=== PATIENT | male | born 1940 | race Caucasian/White ===

== ENCOUNTER → 2016-10-13 | Outpatient (CLI) | payer MEDICARE ==
[~2016-10-13] MED LIST: BRIM0.155 EACH EYE; CENTTAB PO; DICL75TA PO; EPIP0.3I IM; LATA0.002 EACH EYE; ROSU5 PO; TIMO0.5S30 EACH EYE; VITA500T PO
[2016-10-13 10:35] LABS: AUTOMATED NEUTROPHIL # 3.3 TH/MM3 (1.8-7.7); BASOPHIL # 0.1 TH/MM3 (0-0.2); BASOPHIL % 1.2 % (0.0-2.0); EOSINOPHIL # 0.1 TH/MM3 (0-0.4); EOSINOPHIL % 1.7 % (0.0-4.0); HEMATOCRIT 44.1 % (39.0-51.0); HEMO FLAGS DIFF FINAL; LYMPH % 27.4 % (9.0-44.0); LYMPHOCYTE # 1.5 TH/MM3 (1.0-4.8); MEAN CELL VOLUME 93.4 FL (80.0-100.0); MEAN CORPUSCULAR HEMOGLOBIN 32.3 PG (27.0-34.0); MEAN CORPUSCULAR HGB CONC 34.6 % (32.0-36.0); MONO % 11.5 % (0.0-8.0); NEUT % 58.2 % (16.0-70.0); PLATELET COUNT 228 TH/MM3 (150-450); RED BLOOD COUNT 4.72 MIL/MM3 (4.50-5.90); RED CELL DISTRIBUTION WIDTH 14.4 % (11.6-17.2); WHITE BLOOD COUNT 5.6 TH/MM3 (4.0-11.0)
[2016-10-13 10:37] LABS: BLOOD, URINE NEG (NEG); GLUCOSE,URINE NEG (NEG); KETONE, URINE NEG (NEG); NITRITE,URINE NEG (NEG); PH, URINE 7.5 (5.0-8.5); URINE COLOR LIGHT-YELLOW (YELLW/STRAW)
[2016-10-13 10:38] LABS: COMMENT (UR) CULT NOT INDICATED; CULTURE IF INDICATED CULT NOT INDICATED
[2016-10-13 10:45] LABS: PROTHROMBIN TIME - PATIENT 10.5 SEC (9.8-11.6)
--- NOTE | 2016-10-13 11:04 | RADRPT ---
EXAM DATE/TIME: 10/13/2016 10:44 [facility] COMPARISON: No previous studies available for comparison. INDICATIONS : Evaluate heart and lungs for surgery clearance. MEDICAL HISTORY : None. SURGICAL HISTORY : None. ENCOUNTER: Initial ACUITY: 1 day PAIN SCORE: 0/10 LOCATION: chest FINDINGS: PA and lateral views of the chest demonstrate the lungs to be symmetrically aerated without evidence of mass, infiltrate or effusion. The cardiomediastinal contours are unremarkable. There is multilev el degenerative change throughout the spine. CONCLUSION: 1. No acute cardiopulmonary disease. Fuad Hernandez MD on October 13, 2016 at 11:03 Board Certified Radiologist. This report was verified electronically.
[2016-10-13 11:07] LABS: BICARBONATE 27.8 MEQ/L (21.0-32.0); POTASSIUM 4.9 MEQ/L (3.5-5.1)
--- NOTE | 2016-10-14 23:06 | EKG ---
Date Performed: 10/13/2016 Time Performed: 09:59:48 PTAGE: 76 years EKG: SINUS BRADYCARDIA BORDERLINE ECG NO PREVIOUS TRACING DOCTOR: Reed Tyson Interpretating Date/Time 10/14/2016 22:55:44
== END ==
LOC: CPRE 09:35
PROVIDERS: ATTEND Orthopaedic Surgery
DX: Z01.810 Encounter for preprocedural cardiovascular examination (principal); S83.241A Other tear of medial meniscus, current injury, right knee, initial encounter; R00.1 Bradycardia, unspecified; Z01.812 Encounter for preprocedural laboratory examination; Z01.818 Encounter for other preprocedural examination; X58.XXXA Exposure to other specified factors, initial encounter
CPT/HCPCS: 36415; 71020; 80048; 81001; 85025; 85610; 93005

== ENCOUNTER → 2016-10-21 | Day surgery (SDC) | payer MEDICARE ==
--- NOTE | 2016-10-14 19:54 | MH ---
cc: GT LERMA DATE OF ADMISSION: 10/21/2016 ADMITTING DIAGNOSIS: 1. A medial meniscus tear of the right knee. 2. Chondromalacia patellae, right knee. 3. Effusion, right knee. 4. Popliteal cyst, right knee. 5. Osteochondral defect medial femoral condyle, right knee. 6. Pain right knee. HISTORY OF PRESENT ILLNESS: The patient is a 76-year-old white male who has experienced pain of his right knee of at least four months duration. In June of this past year while being active at home involving washing windows and climbing up and down a ladder in a repetitive manner, the patient became symptomatic with pain involving his lower back region radiating into his right lower extremity. He later underwent epidural steroid injections for which he was able to appreciate improvement of his lower back symptoms but continued to note pain of his right lower extremity extending into the knee region. He was later seen by his primary care physician who ordered x-ray studies of the right knee, the results of which were reported as being negative. A subsequent MRI scan identified moderate chondromalacia patellae with a joint effusion and a popliteal cyst. A tear involving the body and posterior horn of the medial meniscus was also identified. An osteochondral defect of the medial femoral condyle was associated with narrowing of the joint space somewhat more pronounced medially. The patient was later seen by the undersigned physician at which time he described lingering pain about the anterior aspect of his right lower extremity extending onto the knee with associated swelling. He had been accustomed to playing golf on a regular basis but had been unable to continue with this routine because of his ongoing knee symptoms. His clinical findings were felt to be consistent with an internal derangement of his right knee for which findings and treatment options were reviewed. The pros and cons of continuing with conservative management versus operative intervention involving arthroscopic surgery were outlined in detail. Emphasis was made regarding the fact that the decision to proceed with surgery would be left entirely to the patient's discretion. He felt that his knee symptoms were of such a degree that he was ready to proceed in this direction and in compliance with his wishes he is currently being admitted in order that the above be accomplished. PAST MEDICAL HISTORY, HOSPITALIZATIONS AND SURGERIES: His past medical history, hospitalizations and surgeries have included: 1. Appendectomy. 2. Colonoscopy. The patient's medical illnesses include glaucoma. MEDICATIONS: His current medications: 1. Diclofenac 75 milligrams twice daily. 2. Crestor 5 milligrams daily. 3. Timolol ophthalmic drops 0.5% twice daily. 4. Brimonidine 0.15% daily. 5. Latanoprost 0.005% daily. 6. He also takes a vitamin C supplement. 7. Centrum Silver. ALLERGIES: The patient describes drug allergy to. 1. PENICILLIN HAS CAUSED A HIVES-LIKE REACTION. 2. BEE STINGS HAVE ALSO BEEN ASSOCIATED WITH A HIVES-LIKE REACTION. REVIEW OF SYSTEMS: He does wear glasses. Denies headache, seizure or syncope. No sinus congestion or epistaxis. Auditory acuity intact. No tinnitus. No bleeding gums or dysphagia. He denies cough, shortness of breath, upper respiratory infection, pneumonia or tuberculosis. No angina or heart disease. His appetite is good bowel movements are regular. There has been no hepatitis, gallbladder disease or ulcers. He has had hemorrhoids in the past. No urinary tract infection. No prostate disease. No history of fractures. No psychiatric illness. His remaining review of systems is unremarkable and noncontributory. FAMILY HISTORY: The patient has been for 23 years, this being his second marriage. He has one daughter by his first marriage indicated to be in good health, a stepson and a stepdaughter with a history of chronic Lyme's disease. His family history is otherwise significant for arthritis and stroke. 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 He denies active use of tobacco for almost 30 years but had been at least a 25-30 pack-year user prior to that time. Ethanol consumption socially. PHYSICAL EXAMINATION: HEIGHT: Height 5 feet 6 inches. WEIGHT: 172 pounds. GENERAL: An alert, oriented and responsive 76-year-old white male who sits quietly upon the examination table with no obvious distress. HEAD, EYES, EARS, NOSE, THROAT: Pupils are equally round and reactive to light. Extraocular movements full. Sclerae are clear. External nares clear. External of external auditory canals clear. Dental intact. Mucous membranes pink and moist. Pharynx clear. NECK: The neck is supple. Active range of motion without significant pain. Carotid pulse bilaterally. Trachea midline. Thyroid without enlargement. LUNGS: Clear to auscultation and percussion. No CVA tenderness. No discomfort throughout the dorsal or lumbar spine. HEART: Regular rhythm. No murmur or gallop. ABDOMEN: Abdomen is soft and nontender. Bowel sounds present. RECTAL: Per primary care physician. EXTREMITIES: Right knee with no significant swelling or effusion. No appreciable joint line tenderness. Apprehension and compression signs are negative. Full range of motion with slight hesitation at the extreme of flexion. No associated crepitation or instability. No collateral ligamentous laxity. Zafar test and draw signs negative. Pivot shift and Simon signs minimally positive for medial compartment pain. Straight-leg raising unremarkable at 80 degrees. Distal sensory grossly intact. Independent gait. NEUROLOGIC: Cranial nerves II-XII grossly intact. IMPRESSION: 1. Medial meniscus tear right knee. 2. Chondromalacia patellae right knee. 3. Effusion right knee. 4. Popliteal cyst right knee. 5. Osteochondral defect medial femoral condyle right knee. 6. Pain right knee PLAN: Arthroscopic surgery and possible arthrotomy right knee. The nature of the planned surgical procedure, the potential complications and risks associated, the expectations of surgery and the consent form were thoroughly reviewed with the patient in the presence of his prior to admission to the hospital. Martínez has indicated his full understanding regarding all of the above and given consent to proceed with treatment as outlined. Medical evaluation and clearance for surgery will be completed by his primary care physician Dr. Katerina Brandon. MD SHABBIR Pappas/THEODORE /5:26 PM /7:40 PM
[~2016-10-21] VITALS: Ht 167.6 cm; Wt 82.2 kg
[~2016-10-21] MED LIST changes: +ACETAMINOPHEN 1000 MG/100 ML VIAL IV ONE; +ACETAMINOPHEN/HYDROcodone 325 MG/5 MG TAB PO PRN; +DEXAMETHASONE SOD PHOS 4 MG/ML VIAL ONE; +DO NOT ADM ANY ANTICOAGULANT DRUGS XX PRN; +FAMOTIDINE 20 MG/2 ML VIAL ONE; +INSULIN HUMAN REGULAR 1,000 UNITS/10 ML VIAL SQ PRN; +KETOROLAC TROMETHAMINE 60 MG/2 ML (IM) VIAL IM ONE; +LACTATED RINGER'S 1000 ML IV SCH; +LIDOCAINE HCL 2% 20 ML VIAL OTHER ONE; +METOPROLOL TARTRATE 25 MG TAB PO PRN; +MIDAZOLAM HCL 2 MG/2 ML VIAL ONE; +MORPHINE SULFATE 8 MG/ML INJ IM PRN; +ONDANSETRON HCL 4 MG/2 ML VIAL IV PUSH ONE; +POVIDONE IODINE 7.5% SCRUB 118 ML BOTTLE TOP SCH; +PROMETHAZINE INJ 25 MG/ML VIAL IM PRN; +PROPOFOL 200 MG/20 ML AMP IV ONE; +SODIUM CHLORID 0.9% 500 ML IV SCH; +TRIAMCINOLONE ACETONIDE 40 MG/ML VIAL IA ONE; +VANCOMYCIN 1000 MG/NS 250 ML (for <70 kg) IV SCH
[2016-10-21 09:12] VITALS: BP 142/73; PULSE 67; RESP 18; TEMP 98; O2SAT 99
[2016-10-21 12:45] VITALS: BP 150/69; PULSE 64; RESP 18; TEMP 97.1; O2SAT 99
--- NOTE | 2016-10-26 19:49 | MP ---
cc: GT ARCE MD DATE OF SURGERY: 10/21/2016 PREOPERATIVE DIAGNOSIS: 1. Medial meniscus tear of the right knee. 2. Chondromalacia patella right knee. 3. Effusion right knee. 4. Popliteal cyst, right knee. 5. Osteochondral defect, medial femoral condyle right knee. 6. Pain right knee. POSTOPERATIVE DIAGNOSIS: 1. Medial meniscus tear of the right knee. 2. Chondromalacia patella right knee. 3. Effusion right knee. 4. Popliteal cyst, right knee. 5. Osteochondral defect, medial femoral condyle right knee. 6. Pain right knee. OPERATION: 1. Partial medial meniscectomy, right knee. 2. Chondroplasty of the medial femoral condyle. 3. Patella femoral joint. SURGEON: Gt Arce M.D. ANESTHESIA: General by LMA. FORMAT Following induction of satisfactory general anesthesia by LMA insertion as completed per the Department of Anesthesia, examination of the right knee revealed a satisfactory range of motion with no obvious instability. An intermittent crepitus was elicited about the joint space. The extremity proper was positioned into the certified ophthalmic surgical assistant knee braden prepped with Betadine solution and draped into a sterile field in the routine manner. Prior to initiation of the actual procedure the standard time-out protocol was completed. All parameters were appropriately addressed and confirmed by operating room personnel. Arthroscopic instrumentation was introduced through stab wound utilizing cannula with sharp and blunt trocar. The inflow irrigation by way of a medial suprapatellar portal, the arthroscope through a lateral parapatellar portal and probe through a medial parapatellar portal. Examination of the suprapatellar pouch did reveal a mild degree of reactive synovitis, a significant articular irregularity throughout the patellar side of the patellofemoral joint was appreciated, consistent with chondromalacia. Within the medial compartment an osteochondral defect of the medial femoral condyle with associated chondromalacia was identified, as was a degenerative tear involving the posterior horn of the medial meniscus. The anterior cruciate ligament was identified and noted to be intact. Within the lateral compartment there was a minimal degree of fraying along the margin of the lateral meniscus consistent with a mild degenerative process but no significant tear was otherwise appreciated. Attention was redirected to the medial compartment utilizing a biting suction forceps as well as a 4.0 aggressive resector. A partial medial meniscectomy was accomplished as well as a generalized chondroplasty of the medial femoral condyle. The shaver was thereafter oriented into the patellofemoral articulation where an additional chondroplasty of the patellofemoral joint was accomplished as well as localized debridement of reactive synovium. Upon completion of same the joint space was thoroughly lavaged and suctioned dry. An intra-articular Kenalog lidocaine injection was completed. Portal sites were reapproximated with Steri-Strips over which Xeroform gauze and a bulky dry sterile dressing placed. Anesthesia was discontinued and the patient thus transferred to a hospital stretcher and returned to the recovery room in satisfactory condition having tolerated his operative procedure well. Estimated blood loss was less than 10 cc. MD SHABBIR Pappas/ALICIA /11:33 AM /7:20 PM
== END | disposition home or self-care (01) ==
LOC: HSDC 08:30
PROVIDERS: ATTEND Orthopaedic Surgery
DX: S83.241A Other tear of medial meniscus, current injury, right knee, initial encounter (principal); M22.41 Chondromalacia patellae, right knee; M71.21 Synovial cyst of popliteal space [Baker], right knee
CPT/HCPCS: 01400; 29881; J0131; J1100; J1885; J2250; J2405; J3010; J3301; J3370; J7050; J7120

== ENCOUNTER → 2018-02-05 | Outpatient (CLI) | payer MEDICARE ==
[~2018-02-05] MED LIST changes: -ACETAMINOPHEN 1000 MG/100 ML VIAL IV ONE; -ACETAMINOPHEN/HYDROcodone 325 MG/5 MG TAB PO PRN; +ADJUSTABLE COMM1 MIS; +ASCO500T PO; +ASPI-183 PO; +CIAL5TAB PO; -DEXAMETHASONE SOD PHOS 4 MG/ML VIAL ONE; -DO NOT ADM ANY ANTICOAGULANT DRUGS XX PRN; -FAMOTIDINE 20 MG/2 ML VIAL ONE; +HYDR-3516 PO; -INSULIN HUMAN REGULAR 1,000 UNITS/10 ML VIAL SQ PRN; -KETOROLAC TROMETHAMINE 60 MG/2 ML (IM) VIAL IM ONE; -LACTATED RINGER'S 1000 ML IV SCH; -LIDOCAINE HCL 2% 20 ML VIAL OTHER ONE; -METOPROLOL TARTRATE 25 MG TAB PO PRN; -MIDAZOLAM HCL 2 MG/2 ML VIAL ONE; +MIRA3350 PO; -MORPHINE SULFATE 8 MG/ML INJ IM PRN; +MULT1TAB PO; -ONDANSETRON HCL 4 MG/2 ML VIAL IV PUSH ONE; -POVIDONE IODINE 7.5% SCRUB 118 ML BOTTLE TOP SCH; -PROMETHAZINE INJ 25 MG/ML VIAL IM PRN; -PROPOFOL 200 MG/20 ML AMP IV ONE; +SENN187 PO; -SODIUM CHLORID 0.9% 500 ML IV SCH; -TRIAMCINOLONE ACETONIDE 40 MG/ML VIAL IA ONE; -VANCOMYCIN 1000 MG/NS 250 ML (for <70 kg) IV SCH; +WALKER WHEELS/F1 MIS
[2018-02-05 11:42] LABS: BASOPHIL # 0.1 TH/MM3 (0-0.2); BASOPHIL % 0.8 % (0.0-2.0); EOSINOPHIL # 0.1 TH/MM3 (0-0.4); EOSINOPHIL % 0.8 % (0.0-4.0); HEMATOCRIT 46.9 % (39.0-51.0); HEMOGLOBIN 16.1 GM/DL (13.0-17.0); LYMPH % 16.4 % (9.0-44.0); LYMPHOCYTE # 1.4 TH/MM3 (1.0-4.8); MEAN CELL VOLUME 92.1 FL (80.0-100.0); MEAN CORPUSCULAR HEMOGLOBIN 31.6 PG (27.0-34.0); MEAN CORPUSCULAR HGB CONC 34.4 % (32.0-36.0); MEAN PLATELET VOLUME 8.2 FL (7.0-11.0); MONO % 9.7 % (0.0-8.0); MONOCYTE # 0.8 TH/MM3 (0-0.9); NEUT % 72.3 % (16.0-70.0); PLATELET COUNT 271 TH/MM3 (150-450); RED CELL DISTRIBUTION WIDTH 12.8 % (11.6-17.2); WHITE BLOOD COUNT 8.3 TH/MM3 (4.0-11.0)
[2018-02-05 11:48] LABS: PROTHROMBIN TIME - PATIENT 10.5 SEC (9.8-11.6)
[2018-02-05 11:52] LABS: BILIRUBIN, URINE NEG (NEG); BLOOD, URINE NEG (NEG); GLUCOSE,URINE NEG (NEG); KETONE, URINE NEG (NEG); MUCUS URINE FEW /lpf (OCC); NITRITE,URINE NEG (NEG); PH, URINE 6.5 (5.0-8.5); SQUAMOUS EPITHELIAL CELL URINE <1 /hpf (0-5); URINE COLOR YELLOW (YELLW/STRAW); URINE LEUKOCYTE ESTERASE NEG (NEG)
[2018-02-05 12:07] LABS: BICARBONATE 30.4 MEQ/L (21.0-32.0); CALCIUM 9.5 MG/DL (8.5-10.1); CREATININE 1.02 MG/DL (0.60-1.30)
--- NOTE | 2018-02-05 12:23 | RADRPT ---
EXAM DATE/TIME: 02/05/2018 12:00 [facility] COMPARISON: CHEST PA & LAT, October 13, 2016, 10:44. INDICATIONS : Evaluate for pneumonia,pneumothorax and communicable diseases. Pre-op hip surgery MEDICAL HISTORY : None. SURGICAL HISTORY : None. ENCOUNTER: Initial ACUITY: 1 day PAIN SCORE: 0/10 LOCATION: chest FINDINGS: PA and lateral views of the chest demonstrate the lungs to be symmetrically aerated without evidence of mass, infiltrate or effusion. The cardiomediastinal contours are unremarkable. Osseous structure s are intact. CONCLUSION: No acute disease. Messi Atkinson MD on February 05, 2018 at 12:20 Board Certified Radiologist. This report was verified electronically.
--- NOTE | 2018-02-05 18:29 | EKG ---
Date Performed: 02/05/2018 Time Performed: 11:11:49 PTAGE: 77 years EKG: Sinus rhythm NORMAL ECG Since the PREVIOUS TRACING , no significant change noted PREVIOUS TRACIN10/13/16 @ 09.59 DOCTOR: Michael Middleton Interpretating Date/Time 02/05/2018 18:28:27
== END ==
LOC: CPRE 10:47
PROVIDERS: ATTEND Orthopaedic Surgery
DX: Z01.810 Encounter for preprocedural cardiovascular examination (principal); Z01.812 Encounter for preprocedural laboratory examination; Z01.818 Encounter for other preprocedural examination; M16.11 Unilateral primary osteoarthritis, right hip
CPT/HCPCS: 36415; 71046; 80048; 81001; 85025; 85610; 93005

== ENCOUNTER 2018-02-13 05:17 | Inpatient (IN) | payer MEDICARE ==
--- NOTE | 2018-02-08 18:01 | MH ---
cc: Richard Arce MD, Norman B MD DATE OF ADMISSION: 02/13/2018 ADMITTING DIAGNOSIS: Severe osteoarthritis of the right hip. HISTORY OF PRESENT ILLNESS: The patient is a 77-year-old white male who has had at least a 6-month history of pain involving his right hip. He had initially noted the gradual onset of his symptoms unrelated to injury or unusual activity. He underwent initial evaluation with his primary care physician in the [facility] who diagnosed his symptoms as possibly being related to sciatica. The patient did undergo x-ray examination for which arthritic findings of his right hip were identified. He elected to continue with conservative management which included a series of stem cell injections, a course of physical therapy and, thereafter, the patient conforming to an exercise program. He had been accustomed to playing golf on a regular basis, but had to discontinue this routine because of the progressive nature of his pain. He had been taking both Tylenol and ibuprofen for pain management with limited benefit being noted. He was subsequently seen by the undersigned physician within the past month and at that time described ongoing pain about the right hip that was limiting all ambulatory activities. His x-ray studies revealed severe degenerative changes with complete absence of the joint space and flattening of the femoral head with subchondral cyst formation. Findings and treatment options were reviewed with the patient at that time. The pros and cons of continued conservative management versus operative intervention that would involve total hip arthroplasty were outlined in detail. Emphasis was made regarding the fact that the decision to proceed with surgery would be left entirely to the patient's discretion. The patient readily admitted that he had arrived at that point in time where he was unable to continue with any activity of daily living in a comfortable manner and, given his options, he was ready to proceed with surgery as discussed. In compliance with his wishes, he was currently scheduled for admission in order that the above be accomplished. PAST MEDICAL HISTORY, HOSPITALIZATIONS AND SURGERIES: Have included arthroscopic surgery of his right knee for a history of a medial meniscus tear. He has also undergone appendectomy and colonoscopy. The patient's medical illnesses include glaucoma. CURRENT MEDICATIONS: 1. Crestor 5 mg daily. 2. Timolol ophthalmic drops 0.5% twice daily. 3. Brimonidine 0.15% daily. 4. Latanoprost 0.005% daily. 5. Vitamin C supplement daily. 6. Centrum Silver daily. 7. Tylenol as taken on a p.r.n. basis for pain management. ALLERGIES: THE PATIENT DESCRIBES A DRUG ALLERGY TO PENICILLIN WHICH HAS CAUSED A HIVES LIKE REACTION. HE IS ALSO ALLERGIC TO BEE STINGS, WHICH HAS CAUSED A SIMILAR REACTION. REVIEW OF SYSTEMS: He does wear glasses. Denies headache, seizure, or syncope. No sinus congestion or epistaxis. Auditory acuity intact. No tinnitus. No bleeding gums or dysphagia. Denies cough, shortness of breath, upper respiratory infection, pneumonia, or tuberculosis. No angina or heart disease. Appetite good. Bowel movements are regular. No hepatitis, gallbladder disease or ulcers. There is a positive history of hemorrhoids. No urinary tract infection, no kidney stones, no prostate disease. No history of fractures. No psychiatric illness. Remaining review of systems is unremarkable and noncontributory. FAMILY HISTORY: 24 years, this being a second marriage. is 76 years of age and described as being in good health. One daughter by his first marriage is described as being in good health. A stepson and stepdaughter the latter with a history of chronic Lyme's disease. His family history is significant for arthritis and stroke. 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 He denies active use of tobacco for at least 30 years, but had been a 25-30 pack year user prior to that time. Ethanol consumption on a social basis. PHYSICAL EXAMINATION: VITAL SIGNS: Height 5 feet 6 inches, weight 183 pounds. GENERAL: An alert, oriented, and responsive 77-year-old white male sitting quietly upon the examination table with no apparent distress. HEENT: Pupils are equally round and reactive to light. Extraocular movements full. Sclerae are clear. External nares clear. External auditory canals clear. Mucous membranes pink and moist. Pharynx clear. Dental intact. NECK: Supple, active range of motion with no associated pain. Carotid pulse palpable bilaterally. Trachea midline. Thyroid without enlargement. LUNGS: Clear to auscultation and percussion. No CVA tenderness. No discomfort throughout the dorsolumbar spine. HEART: Regular rhythm, no murmur or gallop. ABDOMEN: Soft, nontender, bowel sounds present. RECTAL: Per primary care physician. EXTREMITIES: Right hip - very minimal tenderness is elicited along the anterior aspect of the right hip. There is no palpable deformity. There is guarded and restricted mobility of the hip joint, being most pronounced with internal rotation and pain at the extreme of motion, a very subtle suggestion for crepitation. No obvious instability. Straight leg raising is negative at 80 degrees. Malvin sign is positive. There is limb length discrepancy of at least 2 cm shortening on the right side. Distal sensory grossly intact. Pronounced antalgic gait. NEUROLOGIC: Cranial nerves 2-12 grossly intact. IMPRESSION: Severe osteoarthritis of the right hip. PLAN: Right total hip arthroplasty. The nature of the planned surgical procedure, the potential complications and risks associated, the expectations of surgery and the consent form were thoroughly reviewed with the patient in the presence of his prior to admission to the hospital. Martínez has indicated his full understanding regarding all of the above and given consent to proceed with treatment as outlined. Medical evaluation and clearance for surgery will be completed by his primary care physician, Dr. Katerina Brandon. MD SHABBIR Pappas/SA , 05:08 PM , 06:00 PM
[~2018-02-13] VITALS: Ht 165.1 cm; Wt 81.5 kg
[~2018-02-13 05:17] MED LIST changes: -ADJUSTABLE COMM1 MIS; -ASPI-183 PO; -CENTTAB PO; -CIAL5TAB PO; -DICL75TA PO; -HYDR-3516 PO; -MIRA3350 PO; -SENN187 PO; -VITA500T PO; -WALKER WHEELS/F1 MIS
[2018-02-13] MEDS ORDERED: METOPROLOL TARTRATE 25 MG TAB PO PRN (05:45)
[2018-02-13] MEDS ORDERED: LACTATED RINGER'S 1000 ML IV PRN (05:45)
[2018-02-13] MEDS ORDERED: SODIUM CHLORID 0.9% 500 ML IV PRN (05:45)
[2018-02-13] MEDS ORDERED: VANCOMYCIN 1 GM/200 ML INJ 200 ML IV SCH (05:45)
[2018-02-13] MEDS ORDERED: CHLORHEXIDINE GLUCONATE 2 % 1 PACK (2 CLOTHS) TOPICAL PRN (05:45)
[2018-02-13] MEDS ORDERED: POVIDONE IODINE 5% (ANTISEPSIS KIT) 4 APPLICATIONS EACH NARE PRN (05:45)
[2018-02-13] MEDS ORDERED: GENTAMICIN SULFATE 80 MG/2 ML VIAL ONE (06:18)
[2018-02-13] MEDS ORDERED: FAMOTIDINE 20 MG/2 ML VIAL ONE (06:31)
[2018-02-13] MEDS ORDERED: TRANEXAMIC ACID 1 GM PRIOR TO PROCEDURE IV SCH ×2 (07:00)
[2018-02-13] MEDS ORDERED: ACETAMINOPHEN 1000 MG/100 ML 100 ML IV ONE (07:06)
[2018-02-13] MEDS ORDERED: DO NOT ADM ANY ANTICOAGULANT DRUGS PRN (09:35)
[2018-02-13] MEDS ORDERED: MIDAZOLAM HCL 2 MG/2 ML VIAL ONE (09:40)
[2018-02-13] MEDS ORDERED: *morphine SULFATE 8 MG/ML PERIprocedure ONLY ONE ×2 (09:41→09:50)
[2018-02-13] MEDS ORDERED: NALOXONE HCL 0.4 MG/ML AMP IV PUSH PRN (09:45)
[2018-02-13] MEDS ORDERED: ACETAMINOPHEN 325 MG TAB PO PRN (09:45)
[2018-02-13] MEDS ORDERED: Post-op Orders (for Pharmacy) XX ONE (09:45)
[2018-02-13] MEDS ORDERED: PHARMACY INFORMATION XX ONE (09:45)
[2018-02-13] MEDS ORDERED: ACETAMINOPHEN/HYDROcodone 325 MG/5 MG TAB PO PRN (09:45)
[2018-02-13] MEDS ORDERED: TRANEXAMIC ACID INJ 1,000 MG in SODIUM CHLORIDE 0.9% INJ 100 ML IV SCH (09:45)
--- NOTE | 2018-02-13 09:50 | HHI.FF ---
Face to Face Verification Diagnosis: (1) Degenerative joint disease of right hip Physical Therapy Gait training Hip: Total hip, Protocol: Right, Abduction pillow while in bed Right LE Weight Bearing: WB as tolerated Right LE Range of Motion: Active ROM Nursing Dressing Changes: Daily dressing change I have seen patient Martínez Mccracken on 02/13/18. My clinical findings support the need for the requested home health care services because: Limited ability to care for self High risk of falls I certify that my clinical findings support that this patient is homebound because: Post-op weakness Unsteady gait/balance Unsafe to leave home unassisted Richard Arce MD February 13, 2018 09:50
[2018-02-13] MEDS ORDERED: TRANEXAMIC ACID 1 GM POST-OP IV SCH ×2 (10:00)
[2018-02-13] MEDS: DEXT 5%-NACL 0.45% 1000 ML INJ 1,000 ML IV SCH ×3 (10:00→20:07)
[2018-02-13] MEDS ORDERED: *LABETALOL HCL 100 MG/20 ML VIAL PERIprocedural Use ONLY ONE (10:03)
--- NOTE | 2018-02-13 10:09 | MP ---
cc: Richard Arce MD DATE OF OPERATION: 02/13/2018 PREOPERATIVE DIAGNOSIS: Severe osteoarthritis of the right hip. POSTOPERATIVE DIAGNOSIS: Severe osteoarthritis of the right hip. PROCEDURE PERFORMED: Right total hip arthroplasty. SURGEON: MD Yazmin ANESTHESIA: General endotracheal. INDICATIONS: This is a 77-year-old white male with a 6-month history of right hip pain of gradual onset unrelated to injury or unusual activity. He had undergone initial evaluation with his primary care physician in the [facility] who diagnosed his symptoms as possibly related to sciatica. The patient did undergo x-ray examination for which arthritic findings of the right hip were identified. He elected to continue with conservative management which included a series of stem cell injections, a course of physical therapy and the patient thereafter conforming to an exercise program. He has been accustomed to playing golf on a regular basis, but had to discontinue this routine because of progressive pain involving his right hip. He has been taking both Tylenol and ibuprofen for pain management with limited benefit noted. He was later seen by the undersigned physician and at that time described ongoing pain about his right hip that was limiting all ambulatory activities. His x-ray studies revealed severe degenerative changes with complete absence of the joint space and flattening of the femoral head with subchondral cyst formation. Findings and treatment options were reviewed. The pros and cons of continuing with conservative management versus operative intervention that would involve a total hip arthroplasty were outlined. Emphasis was made regarding the fact that the decision to proceed with surgery would be left entirely to the patient's discretion. The patient readily admitted that he was at that point in time where he was unable to continue with any activities of daily living in a comfortable manner and, noting his options as outlined above, he was ready to proceed with surgery as discussed. In compliance with his wishes, he was scheduled for admission at this time in order that the above be accomplished. FORMAT: Following the induction of satisfactory general anesthesia by endotracheal intubation as completed per the Department of Anesthesia, the patient was positioned upon the operating table in a left lateral decubitus fashion. The right hip and lower extremity proper were isolated with a U-drape, thereafter being prepped with Betadine solution and draped into a sterile field in the routine manner. Prior to initiation of the actual procedure, the standard timeout protocol was completed. All parameters were appropriately addressed and confirmed by operating room personnel. A standard posterolateral approach to the hip was initiated through a sharp skin incision and developed through underlying subcutaneous tissue with hemostasis maintained by electrocautery. By deepening dissection, the underlying gluteus musculature was exposed and thereafter divided with the Bovie on cutting current. Progressive dissection facilitated exposure of the short external rotator structures. The piriformis tendon was utilized as an anatomical landmark and division of these structures was completed in a superior to inferior orientation and reflected medially, exposing the posterior capsule. The sciatic nerve was protected. An L-shaped capsulotomy was accomplished through which a posterior dislocation of the femoral head was completed. Examination revealed severe degenerative changes with complete erosion of articular cartilage and significant deformation of the femoral head. The femoral template was positioned for alignment orientation. The neck was scored and thereafter divided with power saw, the amputated segment being passed to the back table as surgical specimen. Attention was initially directed to the proximal femur. Cancellous bone was harvested. The tapered reamer was inserted for alignment orientation. Sequential rasping and broaching was accomplished from 7 through 10 mm with the calcar vy being utilized at the 10 mm stage. The 10 mm stem was determined to be a favorable fit. The trial component being removed, attention was redirected to the acetabulum. The labrum reactive soft tissue was sharply excised. Progressive reaming was accomplished in 1 mm increments from 46 through 53 mm. The 54 trial shell was positioned and determined to be satisfactory. With all trial components being removed, the wound was copiously irrigated with pulsating antibiotic solution, hemostasis maintained by electrocautery. Harvested cancellous bone was digitally impacted into the depths of the acetabulum and thereafter a 50 mm Continuum acetabular shell was firmly seated in approximately 45 degrees inclination to the horizontal and slight anteversion. A single 25 mm, 6.5 cancellous screw was inserted superiorly to augment fixation. The permanent high wall acetabular liner was affixed to the acetabular shell. The trial femoral 10 mm broach was repositioned and a trial reduction followed utilizing a 36 mm modular head with -6 mm neck length adaptor. The hip readily reduced, was then carried through a passive range of motion, stability demonstrated at 90 degrees flexion and 45 degrees internal rotation. An open dislocation was completed, trial femoral components being removed. The canal was thoroughly irrigated and dried and thereafter a size 10 Echo Bi-Metric standard femoral stem was firmly seated to which a 36 mm ceramic head with -6 mm neck length adapter attached. Open reduction completed and repeat range of motion again noted stability as previously described. Final irrigation was accomplished with hemostasis maintained. The posterior capsule was repaired with 0 Vicryl suture. Piriformis tendon and short external rotator structures were reapproximated in a similar manner. Hemovac drain tubes were inserted through superior stab wounds. The fascia of the gluteus musculature was reapproximated with a running 0 Vicryl suture. The remaining portion of the wound was closed in layers in the routine manner, skin margins being reapproximated with a running subcuticular 3-0 Vicryl suture over which Steri-Strips were applied. Xeroform gauze and a bulky dry sterile dressing placed. The patient repositioned into a supine orientation where an abduction splint was attached. Anesthesia was discontinued and the patient thereafter transferred to a hospital bed and returned to the recovery room in satisfactory condition, having tolerated his operative procedure well. Estimated blood loss was approximately 400 mL as determined per Anesthesia. Acetabular implants were of the Kurt tobacco prizer and the femoral implants of the Biomet tobacco prizer. MD SHABBIR Pappas/SB , 09:41 AM , 10:08 AM
[2018-02-13] MEDS ORDERED: ONDANSETRON ODT 4 MG TAB PO PRN (10:15)
[2018-02-13] MEDS: MORPHINE SULFATE 30 MG/30 ML PCA IV SCH (10:24)
--- NOTE | 2018-02-13 10:58 | RADRPT ---
EXAM DATE: 02/13/2018 10:37 AM EDT AGE/SEX: 77 years / Male INDICATIONS: Post-op right hip replacement. CLINICAL DATA: This is the patient's initial encounter. Patient reports that signs and symptoms have been present for 1 day and indicates a pain score of 6/10. MEDICAL/SURGICAL HISTORY: None. None. COMPARISON: No prior [facility] exams available for comparison. TECHNIQUE: Single view FINDINGS: Bony structures are intact and in normal alignment. Postsurgical changes following right hip replacement are noted. Femoral and acetabular components are well seated in satisfactory alignmen t. Osseous density is normal. Soft tissues are unremarkable. CONCLUSION: Satisfactory postoperative appearance following right hip replacement. Electronically signed by: Rangel Banks MD 02/13/2018 10:57 AM EDT
[2018-02-13 12:00] VITALS: BP 166/78; PULSE 71; RESP 19; TEMP 97.4; O2SAT 100
[2018-02-13] MEDS: PCA - TOTAL MG MORPHINE DELIVERED PER SHIFT SCH ×2 (14:00→20:07)
[2018-02-13] MEDS ORDERED: ENALAPRILAT 1.25 MG/ML VIAL IV PUSH PRN (14:45)
--- NOTE | 2018-02-13 14:46 | PD.CONS ---
[facility] Consult Requested By Dr. arce Reason for Consult Opinions and recommendations on treatment of patient's elevated blood pressure Primary Care Physician Jesica Brandon M.D. Diagnoses: History of Present Illness 77-year-old white male with a previous history of osteoarthritis, hyperlipidemia who has had long-term history of right hip pain despite conservative treatment. He electively underwent a right total knee arthroplasty with Dr. Arce today. Postoperatively, patient reports his pain is controlled. He has no other complaints. He denies a history of constipation. He denies a history of blood in stools or black tarry stools. He reports no significant history of elevated blood pressure however does report "white coat syndrome." He is currently not taking any medication for blood pressure. Review of Systems Constitutional: DENIES: Fatigue, Fever, Chills, Change in appetite Endocrine: DENIES: Heat/cold intolerance Eyes: DENIES: Blurred vision, Eye pain, Vision loss Ears, nose, mouth, throat: DENIES: Hearing loss, Nasal discharge, Throat pain, Ear Pain, Sinus Pain Respiratory: DENIES: Cough, Shortness of breath Cardiovascular: DENIES: Chest pain, Palpitations, Dyspnea on Exertion, Lower Extremity Edema Gastrointestinal: DENIES: Abdominal pain, Black stools, Bloody stools, Constipation, Diarrhea, Nausea, Vomiting Musculoskeletal: COMPLAINS OF: Joint pain (Right hip pain as described in HPI) , DENIES: Muscle aches, Stiffness Integumentary: DENIES: Rash Hematologic/lymphatic: DENIES: Bruising, Lymphadenopathy Immunologic/allergic: DENIES: Eczema Neurologic: DENIES: Headache, Localized weakness, Paresthesias Psychiatric: DENIES: Anxiety, Depression, Suicidal Ideation Past Family Social History Allergies: Coded Allergies: bee venom protein (honey bee) (Unverified Allergy, Severe, Anaphylaxis, ) carries epi pen penicillin G (Unverified Allergy, Severe, Hotflash, 02/13/18) Past Medical History Arthritis Hyperlipidemia Glaucoma Cataracts Past Surgical History Appendectomy Right knee arthroscopic surgery Reported Medications Vitamin C 500 mm p.o. daily Brimondine tartrate1 drop each eye daily EpiPen 0.3 mg IM as needed for any anaphylaxis Latanoprost ophthalmic drops 1 drop each eye nightly Multivitamin 1 p.o. daily Crestor 5 mg p.o. daily Timolol ophthalmic drops 0.5% solution 1 drop each eye twice daily Family History Father had rheumatoid arthritis Social History Does not smoke cigarettes occasional use of alcohol Physical Exam Vital Signs Vital Signs Date Time Temp Pulse Resp B/P (MAP) Pulse Ox O2 Delivery O2 Flow Rate FiO2 02/13/18 12:00 97.4 71 19 166/78 (107) 100 02/13/18 10:30 65 12 153/67 (95) 99 Nasal Cannula 2 02/13/18 10:24 16 02/13/18 10:00 67 17 163/80 (107) 99 Nasal Cannula 2 02/13/18 09:45 74 12 149/67 (94) 97 Nasal Cannula 2 02/13/18 09:35 97.5 76 19 178/85 (116) 97 Nasal Cannula 2 02/13/18 05:45 98.7 64 20 167/97 (120) 99 Physical Exam GENERAL: This is a well-nourished, well-developed patient, in no apparent distress. SKIN: No rashes, ecchymoses or lesions. Cool and dry. HEAD: Atraumatic. Normocephalic. No temporal or scalp tenderness. EYES: Pupils equal round and reactive. Extraocular motions intact. . ENT: Nose without bleeding, purulent drainage or septal hematoma. NECK: Trachea midline. No JVD or lymphadenopathy. Supple, nontender, no meningeal signs. CARDIOVASCULAR: Regular rate and rhythm RESPIRATORY: Clear to auscultation. Breath sounds equal bilaterally. No wheezes , rales, or rhonchi. GASTROINTESTINAL: Abdomen soft, non-tender, nondistended. No hepato-splenomegaly , or palpable masses. No guarding. MUSCULOSKELETAL: Extremities without clubbing, cyanosis, or edema. Bilateral SCDs, right hip dressing and drain in place NEUROLOGICAL: Awake and alert to person place time and situation. Cranial nerves II through XII intact. Motor and sensory grossly within normal limits. Normal speech. Imaging Last Impressions Hip X-Ray 02/13/18 0975 Signed Impressions: CONCLUSION: Satisfactory postoperative appearance following right hip replaceme nt. Assessment and Plan Assessment and Plan 1. Status post right hip arthroplasty- continue postoperative care, pain control, physical therapy per orthopedic surgery, Dr. arce. 2. History of hyperlipidemia - continue with Crestor statin 3. Elevated blood pressure may be due to pain IV Vasotec as needed for any uncontrolled blood pressure, will continue monitor blood pressure trends and further recommendations based on trends. 4. DVT prophylaxis risks and benefits of anticoagulation discussed with patient today. Initiate Xarelto per orthopedic surgery. Thank you for this consultation Columba Garcia MD February 13, 2018 14:46
[2018-02-13 15:59] VITALS: BP 151/86; PULSE 83; RESP 18; TEMP 97.5; O2SAT 98
[2018-02-13 20:00] VITALS: BP 144/55; PULSE 79; RESP 20; TEMP 98.2; O2SAT 98
[2018-02-13] MEDS: VANCOMYCIN INJ 1,000 MG in SODIUM CHLOR 0.9% 250 ML INJ 250 ML IV SCH (20:08)
[2018-02-14] VITALS: BP 134/69; PULSE 83; RESP 20; TEMP 97.9; O2SAT 97
[2018-02-14] MEDS: MORPHINE SULFATE 30 MG/30 ML PCA IV SCH (01:32)
[2018-02-14 04:00] VITALS: BP 154/75; PULSE 88; RESP 18; TEMP 98.6; O2SAT 98
[2018-02-14 04:29] LABS: HEMATOCRIT 38.9 % (39.0-51.0); HEMOGLOBIN 13.5 GM/DL (13.0-17.0)
[2018-02-14] MEDS: PCA - TOTAL MG MORPHINE DELIVERED PER SHIFT SCH ×3 (04:33→22:00)
[2018-02-14] MEDS ORDERED: HYDR-3516 PO (06:24)
[2018-02-14] MEDS ORDERED: ASPI-183 PO (06:24)
[2018-02-14] MEDS ORDERED: ADJUSTABLE COMM1 MIS (06:28)
[2018-02-14] MEDS ORDERED: WALKER WHEELS/F1 MIS (06:28)
[2018-02-14 08:00] VITALS: BP 167/72; PULSE 92; RESP 18; TEMP 98.2; O2SAT 99
[2018-02-14] MEDS: MAGNESIUM HYDROXIDE SUSP 30 ML CUP PO SCH ×2 (08:01→20:32)
[2018-02-14] MEDS: VANCOMYCIN INJ 1,000 MG in SODIUM CHLOR 0.9% 250 ML INJ 250 ML IV SCH (08:03)
[2018-02-14] MEDS: RIVAROXABAN 10 MG TAB PO SCH (09:02)
[2018-02-14] MEDS ORDERED: CIAL5TAB PO (09:39)
[2018-02-14] MEDS: DEXT 5%-NACL 0.45% 1000 ML INJ 1,000 ML IV SCH ×2 (10:00→18:00)
[2018-02-14 11:53] VITALS: BP 162/72; PULSE 106; RESP 19; TEMP 97.9; O2SAT 96
[2018-02-14] MEDS: ACETAMINOPHEN/HYDROcodone 325 MG/5 MG TAB PO PRN ×3 (12:12→21:51)
--- NOTE | 2018-02-14 12:13 | HHI.PR ---
Subjective Remarks Follow-up for right AB, hyperlipidemia. Patient reports his pain is fairly well controlled. He complains of frequent urination and only urinating small amounts. Denies any dysuria or suprapubic pain. Denies any fevers or chills. He also reports passing flatus, requesting Gas-X. His last bowel movement was 2 days ago on Wednesday 02/14. He denies any other medical complaints at this time including no lightheadedness/dizziness, chest pain, shortness of breath, nausea/ vomiting, or abdominal pain. Again discussed his elevated blood pressures, most recently 167/72. 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 Objective Vitals Vital Signs Date Time Temp Pulse Resp B/P (MAP) Pulse Ox O2 Delivery O2 Flow Rate FiO2 02/14/18 11:53 97.9 106 19 162/72 (102) 96 02/14/18 08:00 98.2 92 18 167/72 (103) 99 02/14/18 04:33 16 02/14/18 04:00 98.6 88 18 154/75 (101) 98 02/14/18 01:32 18 02/14/18 00:00 97.9 83 20 134/69 (90) 97 02/13/18 20:07 16 02/13/18 20:00 98.2 79 20 144/55 (84) 98 02/13/18 15:59 97.5 83 18 151/86 (107) 98 02/13/18 14:00 16 I/O 02/13/18 02/13/18 02/13/18 02/14/18 02/14/18 02/14/18 07:00 15:00 23:00 07:00 15:00 23:00 Intake Total 1500 ml 1600 ml 500 ml Output Total 440 ml 455 ml 690 ml Balance 1060 ml 1145 ml -190 ml Intake Oral 600 ml 500 ml IV Total 1000 ml Other 1500 ml Output Urine Total 275 ml 600 ml Drainage Total 40 ml 180 ml 90 ml Estimated Blood Loss 400 ml # Bowel Movements 0 Result Diagram: 02/14/18 7949 Imaging Last Impressions Hip X-Ray 02/13/18 0938 Signed Impressions: CONCLUSION: Satisfactory postoperative appearance following right hip replaceme nt. Objective Remarks GENERAL: Well-nourished, well-developed pleasant elderly male patient in [facility]. SKIN: Warm and dry. No rash. HEENT: Normocephalic. Atraumatic. Pupils equal and round. Mucous membranes pink and moist. CARDIOVASCULAR: Regular rate and rhythm. No murmur appreciated. RESPIRATORY: No accessory muscle use. Clear to auscultation. Breath sounds equal bilaterally. GASTROINTESTINAL: Abdomen soft, non-tender, nondistended. Normoactive bowel sounds x4. MUSCULOSKELETAL: No obvious deformities. Extremities without clubbing, cyanosis , or edema. Right hip surgical dressing in place with drain. Distal RLE sensation intact with 2+ pedal pulses and brisk capillary refill. NEUROLOGICAL: Awake and alert. No obvious cranial nerve deficits. Motor grossly within normal limits. Moving all extremities spontaneously. Normal speech. PSYCHIATRIC: Appropriate mood and affect; insight and judgment normal. Procedures 02/13/18 -right total hip arthroplasty by Dr. Arce Medications and IVs Current Medications Medications (Trade) Dose Ordered Sig/Constance Route Start Time Stop Time Status Last Admin Lactated Ringer's 1,000 ml @ 30 mls/hr Q24H PRN IV 02/13/18 05:45 02/16/18 05:44 02/13/18 05:45 Sodium Chloride 500 ml @ 30 mls/hr [id number] PRN IV 02/13/18 05:45 02/16/18 05:44 (Lopressor) 25 mg PERPETUAL INVENTORY CLERK PRN PO 02/13/18 05:45 02/16/18 05:44 (Betadine 5% Antisepsis Kit) 1 applic PERPETUAL INVENTORY CLERK PRN EACH NARE 02/13/18 05:45 02/16/18 05:44 02/13/18 06:00 (Chlorhexidine 2% Cloth) 3 pack PERPETUAL INVENTORY CLERK PRN TOPICAL 02/13/18 05:45 02/16/18 05:44 02/13/18 05:30 Dextrose/Sodium Chloride 1,000 ml @ 125 mls/hr Q8H IV 02/13/18 10:00 02/13/18 20:07 (Xarelto) 10 mg Q24H PO 02/14/18 08:30 02/14/18 09:02 ([place] 5-325 Mg) 1 tab Q4H PRN PO 02/13/18 09:45 02/14/18 12:12 ([place] 5-325 Mg) 2 tab Q4H PRN PO 02/13/18 09:45 (Tylenol) 650 mg Q6H PRN PO 02/13/18 09:45 (Zofran Odt) 4 mg Q6H PRN PO 02/13/18 10:15 (Colace) 100 mg BID PRN PO 02/13/18 09:45 (Ambien) 5 mg HS PRN PO 02/13/18 09:45 (Narcan Inj) 0.4 mg UNSCH PRN IV PUSH 02/13/18 09:45 (Morphine 1 Mg/ ml DIRECTOR ORANGE) 30 mg UNSCH IV 02/13/18 10:00 02/15/18 09:59 02/14/18 01:32 DIRECTOR ORANGE Dosage Infused (Pha) 1 Q8HR .XX 02/13/18 14:00 02/15/18 09:59 02/14/18 04:33 (Vasotec Inj) 1.25 mg Q6H PRN IV PUSH 02/13/18 14:45 (Milk Of Magnesia Liq) 30ML UNTIL BM Q12HR PO 02/14/18 09:00 02/14/18 08:01 Patient Own Medication PT OWN MED: (Tadala... EVERY OTHER DAY PO 02/16/18 09:00 Future Hold (Mylicon Chew) 80 mg PCHS PRN CHEW 02/14/18 13:45 Urinary Catheter: No A/P Assessment and Plan 77-year-old white male with a previous history of osteoarthritis, hyperlipidemia admitted to [place] for right total hip arthroplasty by Dr. Arce. Hospitalists consulted for medical management. Osteoarthritis s/p Right Total Hip Arthroplasty: surgery done 02/[address] Arce -Continue management per ortho -Continue pain control with [place] prn -DVT prophylaxis with Xarelto per ortho -Continue physical therapy -Plan for patient to d/c with [facility] Hyperlipidemia: chronic -continue patient's statin Elevated blood pressure: may be due to pain, although patient claims whitecoat hypertension and that his BP is always well controlled without meds -Give IV Vasotec as needed for any uncontrolled blood pressure -continue to monitor blood pressure trends and further recommendations based on trends. -outpatient BP log and f/up with PCP Urinary Frequency/Hesitancy: patient reports frequent small amounts of urination. -check UA to rule out infection DVT prophylaxis: on Xarelto per orthopedic surgery. Discharge Planning Plan to discharge with [facility] per ortho. Rubi Mckinnon PA-C February 14, 2018 12:13 pm
[2018-02-14] MEDS ORDERED: SIMETHICONE 80 MG CHEWABLE TAB CHEW ONE (13:45)
[2018-02-14 16:30] VITALS: BP 156/72; PULSE 97; RESP 18; TEMP 98.2; O2SAT 96
[2018-02-14 18:19] LABS: BILIRUBIN, URINE NEG (NEG); BLOOD, URINE SMALL (NEG); GLUCOSE,URINE 300 mg/dL (NEG); KETONE, URINE TRACE mg/dL (NEG); NITRITE,URINE NEG (NEG); SPERM, URINE OCC; URINE COLOR YELLOW (YELLW/STRAW); URINE LEUKOCYTE ESTERASE NEG (NEG)
[2018-02-14 20:00] VITALS: BP 150/64; PULSE 101; RESP 20; TEMP 98; O2SAT 97
[2018-02-14] MEDS: DOCUSATE SODIUM 100 MG CAP PO PRN (20:32)
[2018-02-15] VITALS (7 sets, daily range): BP systolic 114–152; BP diastolic 61–79; PULSE 95–110; RESP 16–20; TEMP 97.3–98.8; O2SAT 95–97
[2018-02-15] MEDS: ZOLPIDEM TARTRATE 5 MG TAB PO PRN ×2 (00:10→22:18)
[2018-02-15] MEDS: DEXT 5%-NACL 0.45% 1000 ML INJ 1,000 ML IV SCH ×3 (02:00→17:32)
[2018-02-15] MEDS: SIMETHICONE 80 MG CHEWABLE TAB CHEW PRN ×2 (04:56→11:41)
[2018-02-15] MEDS: PCA - TOTAL MG MORPHINE DELIVERED PER SHIFT SCH (05:43)
[2018-02-15] MEDS ORDERED: BISACODYL 10 MG SUPP RECTAL ONE (06:30)
[2018-02-15] MEDS ORDERED: cloNIDine HCL 0.1 MG TAB PO PRN (07:15)
[2018-02-15] MEDS: RIVAROXABAN 10 MG TAB PO SCH (08:06)
[2018-02-15] MEDS: MAGNESIUM HYDROXIDE SUSP 30 ML CUP PO SCH ×2 (08:06→21:00)
[2018-02-15] MEDS ORDERED: SOD PHOSPHATE/SOD BIPHOSPHATE (ADULT) ENEMA 133ML RECTAL PRN (11:30)
--- NOTE | 2018-02-15 12:14 | HHI.PR ---
Subjective Remarks Follow-up for right AB, hyperlipidemia. Patient reports his pain is fairly well controlled. He complains of frequent urination and only urinating small amounts. Denies any dysuria or suprapubic pain. Denies any fevers or chills. He also reports passing flatus, requesting Gas-X. His last bowel movement was 2 days ago on Wednesday 02/14. He denies any other medical complaints at this time including no lightheadedness/dizziness, chest pain, shortness of breath, nausea/ vomiting, or abdominal pain. Again discussed his elevated blood pressures, most recently 167/72. 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 02-15 is having difficulty urinating because he is not taking his Cialis like he normally takes it at home for his BPH Patient is having constipation which also may in part affect his difficulty urinating Patient will be given medications for bowel movements Hopefully can be discharged later today to home Discussed with RN and patient Had to be straight cath for 1100 mL's earlier today Also having issues with constipation Objective Vitals Vital Signs Date Time Temp Pulse Resp B/P (MAP) Pulse Ox O2 Delivery O2 Flow Rate FiO2 02/15/18 08:00 97.6 110 17 130/61 (84) 96 02/15/18 05:43 18 02/15/18 04:00 97.9 96 20 152/79 (103) 97 02/15/18 00:00 98.8 95 20 148/67 (94) 95 02/14/18 22:00 18 02/14/18 20:00 98.0 101 20 150/64 (92) 97 02/14/18 16:30 98.2 97 18 156/72 (100) 96 02/14/18 14:00 16 I/O 02/14/18 02/14/18 02/14/18 02/15/18 02/15/18 02/15/18 06:59 14:59 22:59 06:59 14:59 22:59 Intake Total 500 ml 490 ml 1200 ml 720 ml Output Total 690 ml 25 ml 1100 ml Balance -190 ml 465 ml 1200 ml -380 ml Intake Oral 500 ml 1200 ml 720 ml IV Total 490 ml Output Urine Total 600 ml 1100 ml Drainage Total 90 ml 25 ml # Voids 5 # Bowel Movements 0 Result Diagram: 02/14/18 0345 Other Results Laboratory Tests Test 02/14/18 03:45 02/14/18 17:52 Hemoglobin 13.5 GM/DL Hematocrit 38.9 % Urine Color YELLOW Urine Turbidity CLEAR Urine pH 6.0 Urine Specific [place] 1.014 Urine Protein TRACE mg/dL Urine Glucose (UA) 300 mg/dL Urine Ketones TRACE mg/dL Urine Occult Blood SMALL Urine Nitrite NEG Urine Bilirubin NEG Urine Urobilinogen LESS THAN 2.0 MG/DL Urine Leukocyte Esterase NEG Urine RBC 10 /hpf Urine WBC 1 /hpf Urine Sperm OCC Microscopic Urinalysis Comment CULT NOT INDICATED Imaging Last Impressions Hip X-Ray 02/13/18 0985 Signed Impressions: CONCLUSION: Satisfactory postoperative appearance following right hip replaceme nt. Objective Remarks GENERAL: Well-nourished, well-developed pleasant elderly male patient in NAD. SKIN: Warm and dry. No rash. HEENT: Normocephalic. Atraumatic. Pupils equal and round. Mucous membranes pink and moist. CARDIOVASCULAR: Regular rate and rhythm. No murmur appreciated. RESPIRATORY: No accessory muscle use. Clear to auscultation. Breath sounds equal bilaterally. GASTROINTESTINAL: Abdomen soft, non-tender, nondistended. Normoactive bowel sounds x4. MUSCULOSKELETAL: No obvious deformities. Extremities without clubbing, cyanosis , or edema. Right hip surgical dressing in place with drain. Distal RLE sensation intact with 2+ pedal pulses and brisk capillary refill. NEUROLOGICAL: Awake and alert. No obvious cranial nerve deficits. Motor grossly within normal limits. Moving all extremities spontaneously. Normal speech. PSYCHIATRIC: Appropriate mood and affect; insight and judgment normal. Insight and judgment is good Mood and behavior is appropriate Awake alert and oriented 3 talkative and cooperative Procedures 02/13/18 -right total hip arthroplasty by Dr. Arce Medications and IVs Current Medications Lactated Ringer's 1,000 ml @ 30 mls/hr Q24H PRN IV SEE LABEL COMMENTS Last administered on 02/13/18at 05:45; Start 02/13/18 at 05:45; Stop 02/16/18 at 05:44 Sodium Chloride 500 ml @ 30 mls/hr [id number] PRN IV SEE LABEL COMMENTS; Start at 05:45; Stop 02/16/18 at 05:44 Metoprolol Tartrate (Lopressor) 25 mg AS400 CONSULTANT PRN PO SEE LABEL COMMENTS; Start 02/13/18 at 05:45; Stop 02/16/18 at 05:44 Povidone Iodine (Betadine 5% Antisepsis Kit) 1 applic AS400 CONSULTANT PRN EACH NARE SEE LABEL COMMENTS Last administered on 02/13/18at 06:00; Start 02/13/18 at 05:45 ; Stop 02/16/18 at 05:44 Chlorhexidine Gluconate (Chlorhexidine 2% Cloth) 3 pack AS400 CONSULTANT PRN TOPICAL SEE LABEL COMMENTS Last administered on 02/13/18at 05:30; Start 02/13/18 at 05:45 ; Stop 02/16/18 at 05:44 Vancomycin/Sodium Chloride 200 ml @ 250 mls/hr AS400 CONSULTANT IV Last administered on 02/13/18at 06:44; Start 02/13/18 at 05:45; Stop 02/14/18 at 05:44; Status DC Tranexamic Acid 1000 mg/Sodium Chloride 110 ml @ 220 mls/hr ONCE IV Last administered on 02/13/18at 07:01; Start 02/13/18 at 07:00; Stop 02/13/18 at 13:03 ; Status DC Tranexamic Acid 1000 mg/Sodium Chloride 110 ml @ 220 mls/hr ONCE IV Last administered on 02/13/18at 10:25; Start 02/13/18 at 10:00; Stop 02/13/18 at 16:00 ; Status DC Gentamicin Sulfate (Gentamicin Inj) 240 mg STK-MED ONCE .ROUTE Last administered on 02/13/18at 07:33; Start 02/13/18 at 06:18; Stop 02/13/18 at 06:19 ; Status DC Famotidine (Pepcid Inj) 20 mg STK-MED ONCE .ROUTE ; Start 02/13/18 at 06:31; Stop 02/13/18 at 06:32; Status DC Acetaminophen 100 ml @ As Directed STK-MED ONCE IV ; Start 02/13/18 at 07:06; Stop 02/13/18 at 07:07; Status DC Midazolam HCl (Versed Inj) 2 mg STK-MED ONCE .ROUTE ; Start 02/13/18 at 09:40; Stop 02/13/18 at 09:41; Status DC Fentanyl Citrate (fentaNYL INJ) 500 mcg STK-MED ONCE .ROUTE ; Start 02/13/18 at 09:40; Stop 02/13/18 at 09:41; Status DC Morphine Sulfate (*morphine INJ PERIprocedure ONLY) 8 mg STK-MED ONCE .ROUTE Last administered on 02/13/18at 09:41; Start 02/13/18 at 09:41; Stop 02/13/18 at 09:42; Status DC Dextrose/Sodium Chloride 1,000 ml @ 125 mls/hr Q8H IV Last administered on at 20:07; Start 02/13/18 at 10:00 Vancomycin HCl 1000 mg/Sodium Chloride 250 ml @ 250 mls/hr Q12H IV Last administered on 02/14/18at 08:03; Start 02/13/18 at 20:00; Stop 02/14/18 at 08:59 ; Status DC Miscellaneous Information ([facility] Post-op Orders (for Pharmacy)) STAT ONCE XX ; Start 02/13/18 at 09:45; Stop 02/13/18 at 10:10; Status DC Rivaroxaban (Xarelto) 10 mg Q24H PO Last administered on 02/15/18at 08:06; Start 02/14/18 at 08:30 Miscellaneous Medication ([facility] Pharmacy Information) ONCE ONCE XX ; Start at 09:45; Stop 02/13/18 at 10:12; Status DC Acetaminophen/ Hydrocodone Bitart (Adams 5-325 Mg) 1 tab Q4H PRN PO PAIN LESS THAN 5 ON SCALE Last administered on 02/14/18at 21:51; Start 02/13/18 at 09:45 Acetaminophen/ Hydrocodone Bitart (Adams 5-325 Mg) 2 tab Q4H PRN PO PAIN SCALE 5 TO 10; Start 02/13/18 at 09:45 Acetaminophen (Tylenol) 650 mg Q6H PRN PO FEVER > 101; Start 02/13/18 at 09:45 Tranexamic Acid 1000 mg/Sodium Chloride 110 ml @ 200 mls/hr UNSCH IV ; Start at 09:45; Stop 02/13/18 at 10:07; Status DC Ondansetron HCl (Zofran Odt) 4 mg Q6H PRN PO NAUSEA OR VOMITING Last administered on 02/14/18at 19:10; Start 02/13/18 at 10:15 Docusate Sodium (Colace) 100 mg BID PRN PO CONSTIPATION Last administered on at 20:32; Start 02/13/18 at 09:45 Zolpidem Tartrate (Ambien) 5 mg HS PRN PO SLEEP Last administered on 02/15/18at 00:10; Start 02/13/18 at 09:45 Naloxone HCl (Narcan Inj) 0.4 mg UNSCH PRN IV PUSH RESPIRATORY RATE LESS THAN 10; Start 02/13/18 at 09:45 Morphine Sulfate (Morphine 1 Mg/ ml ANTIQUE FURNITURE RESTORER) 30 mg UNSCH IV Last administered on at 01:32; Start 02/13/18 at 10:00; Stop 02/15/18 at 09:59; Status DC ANTIQUE FURNITURE RESTORER Dosage Infused (Pha) 1 Q8HR .XX Last administered on 02/15/18at 05:43; Start 02/13/18 at 14:00; Stop 02/15/18 at 09:59; Status DC Morphine Sulfate (*morphine INJ PERIprocedure ONLY) 8 mg STK-MED ONCE .ROUTE Last administered on 02/13/18at 09:50; Start 02/13/18 at 09:50; Stop 02/13/18 at 09:51; Status DC Labetalol HCl (*TRANDATE INJ PERIprocedural Use ONLY) 100 mg STK-MED ONCE .ROUTE ; Start 02/13/18 at 10:03; Stop 02/13/18 at 10:04; Status DC Miscellaneous Information ([facility] Nursing Information) ALL NURSING DEPARTME... UNSCH PRN .XX SEE LABEL COMMENTS; Start 02/13/18 at 09:35; Stop 02/14/18 at 09: 34; Status DC Enalaprilat (Vasotec Inj) 1.25 mg Q6H PRN IV PUSH SBP> OR = 180, DBP> OR = 100 ; Start 02/13/18 at 14:45 Magnesium Hydroxide (Milk Of Magnesia Liq) 30ML UNTIL BM Q12HR PO Last administered on 02/15/18at 08:06; Start 02/14/18 at 09:00 Patient Own Medication PT OWN MED: ([place]... EVERY OTHER DAY PO ; Start at 09:00; Status Future Hold Simethicone (Mylicon Chew) 80 mg ONCE ONCE CHEW ; Start 02/14/18 at 13:45; Stop 02/14/18 at 14:06; Status DC Simethicone (Mylicon Chew) 80 mg PCHS PRN CHEW gas/bloating Last administered on 02/15/18at 11:41; Start 02/14/18 at 13:45 Bisacodyl (Dulcolax Supp) 10 mg ONCE ONCE RECTAL Last administered on at 07:22; Start 02/15/18 at 06:30; Stop 02/15/18 at 06:31; Status DC Clonidine (Catapres) 0.1 mg Q4H PRN PO SBP>160, DBP>90; Start 02/15/18 at 07:15 Sodium Biphosphate/ Sodium Phosphate (Fleets Enema (Adult)) 118 ml ONCE PRN RECTAL IF DULCOLAX SUPP UNSUCCESSFUL Last administered on 02/15/18at 11:41; Start 02/15/18 at 11:30; Stop 02/16/18 at 11:29 A/P Assessment and Plan 77-year-old white male with a previous history of osteoarthritis, hyperlipidemia admitted to [place] for right total hip arthroplasty by Dr. Arce. Hospitalists consulted for medical management. Osteoarthritis s/p Right Total Hip Arthroplasty: surgery done 02/[address] Arce -Continue management per ortho -Continue pain control with Adams prn -DVT prophylaxis with Xarelto per ortho -Continue physical therapy -Plan for patient to d/c with [facility] Hyperlipidemia: chronic -continue patient's statin Elevated blood pressure: may be due to pain, although patient claims whitecoat hypertension and that his BP is always well controlled without meds -Give IV Vasotec as needed for any uncontrolled blood pressure -continue to monitor blood pressure trends and further recommendations based on trends. -outpatient BP log and f/up with PCP Urinary Frequency/Hesitancy: patient reports frequent small amounts of urination. -check UA to rule out infection -Patient is on chronic Cialis for BPH at home has not been taking DVT prophylaxis: on Xarelto per orthopedic surgery. Constipation start on multiple medications to help with bowel movement Discharge Planning Hopefully discharge later today of constipation and urination improved Lalo Morales DO February 15, 2018 12:14
[2018-02-15] MEDS ORDERED: MIRA3350 PO (12:18)
[2018-02-15] MEDS ORDERED: SENN187 PO (12:18)
[2018-02-15] MEDS: BETHANECHOL CHL 25 MG TAB PO SCH ×2 (15:28→21:01)
[2018-02-15] MEDS: TAMSULOSIN HCL 0.4 MG CAP PO SCH (15:28)
[2018-02-15] MEDS ORDERED: ACETAMINOPHEN 325 MG TAB PO PRN (19:00)
[2018-02-15] MEDS: DOCUSATE SODIUM 100 MG CAP PO PRN (21:00)
[2018-02-16] MEDS: DEXT 5%-NACL 0.45% 1000 ML INJ 1,000 ML IV SCH ×2 (02:00→10:00)
[2018-02-16] MEDS: TAMSULOSIN HCL 0.4 MG CAP PO SCH (03:02)
[2018-02-16 03:27] VITALS: BP 170/76; PULSE 102; RESP 18; TEMP 97.8; O2SAT 96
[2018-02-16] MEDS: SIMETHICONE 80 MG CHEWABLE TAB CHEW PRN ×2 (05:51→08:14)
[2018-02-16] MEDS: BETHANECHOL CHL 25 MG TAB PO SCH ×2 (05:51→08:14)
--- NOTE | 2018-02-16 07:22 | MD ---
cc: Richard Arce MD, Staci MD DATE OF DISCHARGE: 02/16/2018 ADMITTING DIAGNOSES: Severe osteoarthritis of the right hip. DISCHARGE DIAGNOSES: Severe osteoarthritis of the right hip. HISTORY: A 77-year-old white male with a 6-month history of progressive right hip pain of gradual onset unrelated to injury or unusual activity. He had undergone initial evaluation with his primary care physician who diagnosed his symptoms as being related to sciatica. He did later undergo x-ray examination which identified arthritic changes involving his right hip for which he elected to continue with conservative management. Treatment included a series of stem cell injections, a course of physical therapy and subsequent exercise activities at home. The patient had been accustomed to playing golf on a regular basis, but subsequently had to discontinue this routine because of the progressive pain involving his right hip. He had been taking both Tylenol and ibuprofen for pain management with limited benefit appreciated. He was later seen by the undersigned physician and at that time reported ongoing pain about his right hip which was limiting all ambulatory activities. His x-ray studies revealed severe degenerative changes with complete obliteration of the joint space and flattening of the femoral head and subchondral cyst formation. Findings and treatment options were reviewed at that time. The pros and cons of continuing with conservative management versus operative intervention that would involve a total hip replacement were outlined. Emphasis was made regarding the fact that the decision to proceed with surgery would be left entirely to the patient's discretion. The patient readily admitted that he had arrived at that point in time where he was ready to proceed with operative treatment, noting the significant limitations of all activities of daily living. In compliance with his wishes, he was scheduled for admission at this time in order that the above be accomplished. His physical examination at the time of admission revealed minimal tenderness along the lateral aspect of the right hip. There was no palpable deformity. There was guarded and restricted mobility of the hip joint being most pronounced with internal rotation and pain at the extremes of motion, a subtle suggestion for crepitation. No obvious instability. Straight leg raising was negative at 80 degrees. Malvin's sign positive. Limb length discrepancy with shortening on the right side of at least 2 cm magnitude. Distal sensory grossly intact. Pronounced antalgic gait. HOSPITAL COURSE: Prior to admission to the hospital, the patient had undergone medical evaluation and clearance for surgery as completed by his primary care physician, Dr. Jesica Brandon. The patient was taken to the operating room on 02/13/2018 and on that date underwent a right total hip arthroplasty completed in an uncomplicated manner. The patient was noted to have tolerated his operative procedure well. His postoperative course was stable thereafter. Hemoglobin and hematocrit assessment postoperatively was 13.5 and 38.9 respectively. The patient was progressively mobilized under the guidance of physical therapy being permitted weightbearing to tolerance about the right lower extremity. Followup examination of his surgical wound noted to be intact healing favorably, no evidence of infection. Medical followup was completed per the hospitalist service. DVT prophylaxis was initiated. The patient did experience some limited difficulty with spontaneous urination postoperatively for which he was started on Flomax per the hospitalist service. This tended to improve his symptoms. He was subsequently scheduled for discharge on the third postoperative day pending medical clearance at which time he was making steady progress with regards to his rehabilitation program. He was scheduled to be seen in office followup in approximately 4 weeks. His condition at the time of discharge, stable and prognosis favorable. DISCHARGE MEDICATIONS: Include: Hydrocodone 5/325, #40, aspirin 325 mg 1 tab twice daily for 4 weeks, #60. Richard Arce MD NBS/DL , 06:55 AM , 07:21 AM
[2018-02-16 08:00] VITALS: BP 126/57; PULSE 98; RESP 18; TEMP 98.1; O2SAT 96
[2018-02-16] MEDS: RIVAROXABAN 10 MG TAB PO SCH (08:14)
[2018-02-16] MEDS: MAGNESIUM HYDROXIDE SUSP 30 ML CUP PO SCH (08:14)
--- NOTE | 2018-02-16 08:34 | PD.CONS ---
[facility] Service Urology Consult Requested By Dr. Arce Reason for Consult Urinary retention Primary Care Physician Jesica Brandon M.D. Diagnosis: History of Present Illness 77-year-old gentleman with history BPH and managed with Cialis 5 mg by mouth every other day who is status post recent right hip arthroplasty. Postoperatively, the patient has had problems urinating and he believes this may be related to the fact that he has been off of the Cialis medication. He was recently prescribed tamsulosin and Urecholine. A recent bladder scan demonstrated post void residual in excess of 900 cc. Prior to his present hospitalization, the patient stated he was voiding without any problems. He denies dysuria or gross hematuria. Review of Systems Constitutional: DENIES: Fever, Chills Gastrointestinal: DENIES: Abdominal pain Genitourinary: DENIES: Hematuria, Dysuria Musculoskeletal: DENIES: Back pain Except as stated in HPI: all other systems reviewed are Neg Past Family Social History Past Medical History History glaucoma History medial meniscus tear right knee History BPH Past Surgical History Status post recent right hip arthroplasty Status post arthroscopic surgery right knee Status post appendectomy Reported Medications Refer to EMR Allergies: Coded Allergies: bee venom protein (honey bee) (Unverified Allergy, Severe, Anaphylaxis, ) carries epi pen penicillin G (Unverified Allergy, Severe, Hotflash, 02/13/18) Active Ordered Medications Refer to EMR Family History Reviewed and noncontributory Social History Former smoker who quit 30 years ago Occasional alcohol use Physical Exam Vital Signs Date Time Temp Pulse Resp B/P (MAP) Pulse Ox O2 Delivery O2 Flow Rate FiO2 02/16/18 08:00 98.1 98 18 126/57 (80) 96 02/16/18 03:27 97.8 102 18 170/76 (107) 96 02/15/18 23:35 97.3 104 18 114/71 (85) 96 02/15/18 19:49 98.3 104 19 127/68 (87) 96 02/15/18 19:00 Room Air 02/15/18 15:27 98.4 109 16 138/65 (89) 97 02/15/18 12:00 98.0 110 17 151/64 (93) 96 Physical Exam GENERAL: This is a well-nourished, well-developed patient, in no apparent distress. SKIN: No rashes, ecchymoses or lesions. Cool and dry. HEAD: Atraumatic. Normocephalic. No temporal or scalp tenderness. EYES: Pupils equal round and reactive. Extraocular motions intact. No scleral icterus. No injection or drainage. ENT: Nose without bleeding, purulent drainage or septal hematoma. Throat without erythema, tonsillar hypertrophy or exudate. Uvula midline. Airway patent. NECK: Trachea midline. No JVD or lymphadenopathy. Supple, nontender, no meningeal signs. GASTROINTESTINAL: Abdomen soft, non-tender, nondistended. No hepato-splenomegaly , or palpable masses. No guarding. GENITOURINARY: No CVA tenderness MUSCULOSKELETAL: Extremities without clubbing, cyanosis, or edema. No joint tenderness, effusion, or edema noted. No calf tenderness. Negative Homans sign bilaterally. NEUROLOGICAL: Awake and alert. Cranial nerves II through XII intact. Motor and sensory grossly within normal limits. Five out of 5 muscle strength in all muscle groups. Normal speech. Result Diagram: 02/14/18 2838 Imaging Last Impressions Hip X-Ray 02/13/18 2051 Signed Impressions: CONCLUSION: Satisfactory postoperative appearance following right hip replaceme nt. Assessment and Plan Assessment and Plan Urologic impression: Postoperative urinary retention likely of transient nature. Recommendations: 1. Continue with Clarke catheter to gravity drainage for the next several days 2. Office follow-up visit Monday to have Clarke catheter removed for voiding trial 3. Patient advised to continue with Cialis 5 mg by mouth every other day Yonas River MD February 16, 2018 08:34
[2018-02-16] MEDS ORDERED: TADALAFIL 5 MG PO SCH (09:00)
--- NOTE | 2018-02-16 09:38 | HHI.PR ---
Subjective Remarks Overall pain control. Still having difficult time urinating at times. Dribbling. Discussed with Dr. arce should he will be going home with a Clarke catheter with outpatient follow-up. Objective Vitals Vital Signs Date Time Temp Pulse Resp B/P (MAP) Pulse Ox O2 Delivery O2 Flow Rate FiO2 02/16/18 08:00 98.1 98 18 126/57 (80) 96 02/16/18 03:27 97.8 102 18 170/76 (107) 96 02/15/18 23:35 97.3 104 18 114/71 (85) 96 02/15/18 19:49 98.3 104 19 127/68 (87) 96 02/15/18 19:00 Room Air 02/15/18 15:27 98.4 109 16 138/65 (89) 97 02/15/18 12:00 98.0 110 17 151/64 (93) 96 I/O 02/15/18 02/15/18 02/15/18 02/16/18 02/16/18 02/16/18 07:00 15:00 23:00 07:00 15:00 23:00 Intake Total 720 ml 580 ml 360 ml Output Total 1100 ml 450 ml 200 ml Balance -380 ml -450 ml 580 ml 160 ml Intake Oral 720 ml 580 ml 360 ml Output Urine Total 1100 ml 450 ml 200 ml Bladder Scan Volume Amount 739 ml 839 ml # Bowel Movements 1 Result Diagram: 02/14/18 0345 Objective Remarks GENERAL: This is a well-nourished, well-developed patient, in no apparent distress. CARDIOVASCULAR: Regular rate and rhythm RESPIRATORY: Clear to auscultation. Breath sounds equal bilaterally. No wheezes , rales, or rhonchi. GASTROINTESTINAL: Abdomen soft, non-tender, nondistended. Normal active bowel sounds MUSCULOSKELETAL: Extremities without clubbing, cyanosis, or edema. Right hip bandage clean dry and intact NEURO: Alert & Oriented x4 to person, place, time, situation. Moves all ext x4 Procedures 02/13/18 -right total hip arthroplasty by Dr. Arce A/P Assessment and Plan 77-year-old white male with a previous history of osteoarthritis, hyperlipidemia admitted to [place] for right total hip arthroplasty by Dr. Arce. Osteoarthritis s/p operative day #3 postoperative right Total Hip Arthroplasty: surgery done 02/[address] Arce -Continue management per ortho -Continue pain control with [place] prn -DVT prophylaxis with Xarelto per ortho -Continue physical therapy -Plan for patient to d/c with [facility] today with a indwelling Clarke for urinary retention Hyperlipidemia: chronic -continue patient's statin Elevated blood pressure: may be due to pain, although patient claims whitecoat hypertension and that his BP is always well controlled without meds, here in the hospital overall adequately controlled. -Give IV Vasotec as needed for any uncontrolled blood pressure -outpatient BP log and f/up with PCP Urinary Frequency/Hesitancy: patient reports frequent small amounts of urination. Urinalysis negative for infection -Patient is on chronic Cialis for BPH at home has not been taking Clarke catheter for Clarke bag and follow-up as an outpatient upon discharge. DVT prophylaxis: on Xarelto per orthopedic surgery. Discharge Planning Discharge to home with home health care per orthopedic surgery today. Columba Garcia MD February 16, 2018 09:38
== END 2018-02-16 12:31 | disposition home health service (06) | DRG 470 ==
LOC: HSDI 05:17 → N06B 10:46
PROVIDERS: ADMIT Orthopaedic Surgery; ATTEND Orthopaedic Surgery
PROC: 0SR903A Replacement of Right Hip Joint with Ceramic Synthetic Substitute, Uncemented, Open Approach (ICD-10-PCS; principal; 2018-02-13 06:48)
DX: M16.11 Unilateral primary osteoarthritis, right hip (principal); E78.5 Hyperlipidemia, unspecified; R33.8 Other retention of urine; R03.0 Elevated blood-pressure reading, without diagnosis of hypertension; K59.00 Constipation, unspecified; R35.0 Frequency of micturition; M21.70 Unequal limb length (acquired), unspecified site; H26.9 Unspecified cataract; N40.1 Benign prostatic hyperplasia with lower urinary tract symptoms; H40.9 Unspecified glaucoma; Z96.651 Presence of right artificial knee joint; Z87.891 Personal history of nicotine dependence; Z82.3 Family history of stroke; Z82.61 Family history of arthritis
CPT/HCPCS: 73501; 81001; 85014; 85018; 86850; 86900; 86901; 88304; 88305; 88311; 94150; C1776; J0131; J1580; J2250; J2270; J3010; J3370; J7050; J7120